=== PATIENT | female | born 1945 | race African-American/Black ===

== ENCOUNTER 2018-08-30 19:47 | Inpatient (IN) | payer MEDICARE, OTHER ==
[~2018-08-30] VITALS: Ht 157.5 cm; Wt 71.5 kg
[~2018-08-30 19:47] MED LIST: ALBU17AE16 IH; CARV3 PO; COMBIH IH; DULO30CA2 PO; FERR-89 PO; FLUT1DIS3 IH; FURO40 PO; LISI10TA PO
[2018-08-30] MEDS ORDERED: LISI-660 PO (20:03)
[2018-08-30 20:27] LABS: BASOPHILS % (AUTO) 0.3 % (0.0-2.0); EOSINOPHILS % (AUTO) 0.1 % (1.0-6.0); HEMATOCRIT 40.4 % (36-46); LYMPHOCYTES # (AUTO) 0.5 K/uL (1.0-4.8); LYMPHOCYTES % (AUTO) 10.7 % (22.0-44.0); MEAN CORPUSCULAR HEMOGLOBIN 30.1 pg (26.0-34.0); MEAN CORPUSCULAR HGB CONC 32.3 G/dL (31.0-37.0); MEAN CORPUSCULAR VOLUME 93 fL (80-100); MONOCYTES # (AUTO) 0.4 K/uL (0.1-1.0); MONOCYTES % (AUTO) 8.1 % (2.0-9.0); NEUTROPHILS % (AUTO) 80.8 % (40.0-70.0); PLATELET COUNT (AUTO) 141 K/uL (150-450); RED BLOOD CELL COUNT(AUTO) 4.33 MIL/uL (4.00-5.20); RED CELL DISTRIBUTION WIDTH 19.2 % (11.5-14.5)
[2018-08-30 20:37] LABS: CALCIUM, TOTAL 9.3 mg/dL (8.8-10.5); CREATININE 1.28 mg/dL (0.60-1.30); POTASSIUM 4.2 mmol/L (3.5-5.1)
[2018-08-30 20:40] LABS: INR 1.2 (0.9-1.1); PROTHROMBIN TIME 12.2 SEC (9.4-11.6)
[2018-08-30 21:01] LABS: ALBUMIN 3.4 g/dL (3.4-5.0); BILIRUBIN,TOTAL 1.2 mg/dL (0.1-1.0)
[2018-08-30] MEDS ORDERED: ACETAMINOPHEN 325 MG TABLET PO ONE (22:30)
[2018-08-30] MEDS ORDERED: FUROSEMIDE 40 MG/4 ML VIAL IVP ONE (22:45)
[2018-08-30] MEDS ORDERED: MethylPREDNISolone SOD SUCC 125 MG/2 ML VIAL IVP ONE (22:45)
[2018-08-30 23:22] LABS: APPEARANCE,URINE CLEAR (CLEAR); GLUCOSE, URINE (UA) NEGATIVE (NEGATIVE); KETONES,URINE TRACE mg/dL (NEGATIVE); LEUKOCYTE ESTERASE ,URINE NEGATIVE (NEGATIVE); NITRATE,URINE NEGATIVE (NEGATIVE); OCCULT BLOOD,URINE LARGE (NEGATIVE); PROTEIN,URINE SEE CONFIRM (NEGATIVE)
[2018-08-30 23:23] LABS: BILIRUBIN,URINE PRELIM. POSITIVE (NEGATIVE)
[2018-08-30 23:30] LABS: BACTERIA,URINE None Seen /HPF (None Seen); HYALINE CASTS, URINE 0-2 /LPF (None Seen); SQUAMOUS EPITHELIAL CELL,UR Moderate /LPF (None Seen)
[2018-08-30 23:31] LABS: SULFOSALICYLIC ACID,URINE 2+ (Negative)
[2018-08-30] MEDS ORDERED: ACETAMINOPHEN 325 MG TABLET PO PRN (23:45)
[2018-08-30] MEDS ORDERED: 0.9% SODIUM CHLORIDE 10 ML SYRINGE IVP PRN (23:45)
[2018-08-30] MEDS ORDERED: OxyCODONE HCL/ACETAMINOPHEN 5-325 MG TABLET PO PRN (23:45)
[2018-08-30] MEDS ORDERED: MAGNESIUM HYDROXIDE SUSPENSION 30 ML UDCUP PO PRN (23:45)
[2018-08-30] MEDS: DOCUSATE SODIUM 100 MG CAPSULE PO SCH (23:45)
[2018-08-31] VITALS (7 sets, daily range): BP systolic 120–138; BP diastolic 67–86
[2018-08-31] MEDS ORDERED: POTASSIUM CHLORIDE 20 MEQ ER TABLET PO PRN
[2018-08-31] MEDS ORDERED: 0.9% SODIUM CHLORIDE 5 ML NEB SOLUTION NEB ONE ×2 (00:09→01:13)
[2018-08-31] MEDS: FUROSEMIDE 40 MG/4 ML VIAL IVP SCH ×3 (00:50→19:56)
[2018-08-31] MEDS: MethylPREDNISolone SOD SUCC 125 MG/2 ML VIAL IVP SCH ×3 (00:50→19:56)
[2018-08-31] MEDS: IPRATROPIUM BROMIDE 0.5 MG/2.5 ML NEB SOLUTION NEB SCH ×3 (02:00→19:37)
[2018-08-31] MEDS: ALBUTEROL SULFATE 2.5 MG/0.5 ML NEB SOLUTION NEB SCH ×3 (02:00→19:37)
[2018-08-31] MEDS ORDERED: ALBUTEROL SULFATE 2.5 MG/0.5 ML NEB SOLUTION NEB PRN ×2 (03:00→14:15)
[2018-08-31 07:04] LABS: BASOPHILS % (AUTO) 0.1 % (0.0-2.0); EOSINOPHILS % (AUTO) 0 % (1.0-6.0); HEMATOCRIT 37.4 % (36-46); LYMPHOCYTES # (AUTO) 0.2 K/uL (1.0-4.8); LYMPHOCYTES % (AUTO) 7.2 % (22.0-44.0); MEAN CORPUSCULAR HEMOGLOBIN 29.7 pg (26.0-34.0); MEAN CORPUSCULAR HGB CONC 32.1 G/dL (31.0-37.0); MEAN CORPUSCULAR VOLUME 93 fL (80-100); NEUTROPHILS # (AUTO) 2.9 K/uL (1.8-7.7); PLATELET COUNT (AUTO) 134 K/uL (150-450); RED BLOOD CELL COUNT(AUTO) 4.05 MIL/uL (4.00-5.20); RED CELL DISTRIBUTION WIDTH 18.6 % (11.5-14.5)
[2018-08-31 07:07] LABS: NEUTROPHILS % (AUTO) 91.7 % (40.0-70.0)
[2018-08-31 07:12] LABS: CREATININE 1.3 mg/dL (0.60-1.30); POTASSIUM 3.6 mmol/L (3.5-5.1)
[2018-08-31] MEDS: DOCUSATE SODIUM 100 MG CAPSULE PO SCH ×2 (09:00→19:56)
[2018-08-31] MEDS: PANTOPRAZOLE SODIUM 40 MG DR TABLET PO SCH (09:14)
[2018-08-31] MEDS ORDERED: IPRATROPIUM BROMIDE 0.5 MG/2.5 ML NEB SOLUTION NEB PRN (14:15)
[2018-08-31] MEDS ORDERED: SODIUM CHLORIDE 0.9% 50 ML ONE (16:50)
[2018-08-31] MEDS: CefTRIAXone 1 GM/DEXTROSE 50 ML IV SCH (17:01)
[2018-08-31] MEDS: BENZONATATE 100 MG CAPSULE PO SCH ×2 (17:06→19:55)
[2018-08-31] MEDS: GuaiFENesin SR 600 MG ER TABLET PO SCH (19:55)
[2018-08-31] MEDS: OxyCODONE HCL/ACETAMINOPHEN 5-325 MG TABLET PO PRN (20:59)
[2018-09-01] MEDS: ALBUTEROL SULFATE 2.5 MG/0.5 ML NEB SOLUTION NEB SCH ×4 (02:25→19:59)
[2018-09-01] MEDS: IPRATROPIUM BROMIDE 0.5 MG/2.5 ML NEB SOLUTION NEB SCH ×4 (02:25→19:59)
[2018-09-01 04:43] VITALS: BP 131/80
[2018-09-01 07:43] VITALS: BP 133/73
[2018-09-01] MEDS: FUROSEMIDE 40 MG/4 ML VIAL IVP SCH (08:55)
[2018-09-01] MEDS: GuaiFENesin SR 600 MG ER TABLET PO SCH ×2 (08:56→20:32)
[2018-09-01] MEDS: MethylPREDNISolone SOD SUCC 125 MG/2 ML VIAL IVP SCH ×2 (08:56→20:31)
[2018-09-01] MEDS: PANTOPRAZOLE SODIUM 40 MG DR TABLET PO SCH (08:56)
[2018-09-01] MEDS: DOCUSATE SODIUM 100 MG CAPSULE PO SCH ×2 (08:56→20:32)
[2018-09-01] MEDS: BENZONATATE 100 MG CAPSULE PO SCH ×3 (08:57→20:31)
[2018-09-01 11:26] VITALS: BP 134/77
[2018-09-01] MEDS: POTASSIUM CHL 10 MEQ/WATER 50 ML IV PRN ×2 (13:37→18:36)
[2018-09-01 16:04] VITALS: BP 138/81
[2018-09-01] MEDS: CefTRIAXone 1 GM/DEXTROSE 50 ML IV SCH (16:08)
[2018-09-01] MEDS ORDERED: SODIUM CHLORIDE 0.9% 50 ML ONE (18:32)
[2018-09-01 19:24] VITALS: BP 119/62
[2018-09-01 23:41] VITALS: BP 136/70
[2018-09-02] MEDS: IPRATROPIUM BROMIDE 0.5 MG/2.5 ML NEB SOLUTION NEB SCH ×4 (01:59→20:04)
[2018-09-02] MEDS: ALBUTEROL SULFATE 2.5 MG/0.5 ML NEB SOLUTION NEB SCH ×4 (01:59→20:04)
[2018-09-02 04:26] VITALS: BP 132/74
[2018-09-02] MEDS: OxyCODONE HCL/ACETAMINOPHEN 5-325 MG TABLET PO PRN (04:46)
[2018-09-02 07:14] VITALS: BP 133/71
[2018-09-02] MEDS: BENZONATATE 100 MG CAPSULE PO SCH ×3 (09:55→20:57)
[2018-09-02] MEDS: GuaiFENesin SR 600 MG ER TABLET PO SCH ×2 (09:55→20:57)
[2018-09-02] MEDS: DOCUSATE SODIUM 100 MG CAPSULE PO SCH ×2 (09:55→20:56)
[2018-09-02] MEDS: PANTOPRAZOLE SODIUM 40 MG DR TABLET PO SCH (09:56)
[2018-09-02] MEDS: FUROSEMIDE 40 MG/4 ML VIAL IVP SCH (09:56)
[2018-09-02] MEDS: MethylPREDNISolone SOD SUCC 125 MG/2 ML VIAL IVP SCH ×2 (09:56→20:55)
[2018-09-02 10:40] LABS: BASOPHILS % (AUTO) 0.2 % (0.0-2.0); EOSINOPHILS % (AUTO) 0 % (1.0-6.0); HEMATOCRIT 37.6 % (36-46); HEMOGLOBIN 11.9 g/dL (12.0-16.0); LYMPHOCYTES # (AUTO) 0.3 K/uL (1.0-4.8); LYMPHOCYTES % (AUTO) 4.6 % (22.0-44.0); MEAN CORPUSCULAR HEMOGLOBIN 29.4 pg (26.0-34.0); MEAN CORPUSCULAR HGB CONC 31.7 G/dL (31.0-37.0); MEAN CORPUSCULAR VOLUME 93 fL (80-100); MONOCYTES # (AUTO) 0.5 K/uL (0.1-1.0); MONOCYTES % (AUTO) 7.8 % (2.0-9.0); NEUTROPHILS # (AUTO) 5.4 K/uL (1.8-7.7); PLATELET COUNT (AUTO) 144 K/uL (150-450); RED BLOOD CELL COUNT(AUTO) 4.06 MIL/uL (4.00-5.20); RED CELL DISTRIBUTION WIDTH 18.4 % (11.5-14.5)
[2018-09-02 10:42] LABS: NEUTROPHILS % (AUTO) 87.4 % (40.0-70.0)
[2018-09-02 10:56] LABS: BILIRUBIN,TOTAL 0.3 mg/dL (0.1-1.0); CALCIUM, TOTAL 8.6 mg/dL (8.8-10.5); CREATININE 1.64 mg/dL (0.60-1.30); POTASSIUM 3.9 mmol/L (3.5-5.1); TOTAL PROTEIN, SERUM 7.2 g/dL (6.4-8.2)
[2018-09-02 11:00] VITALS: BP 128/66
[2018-09-02] MEDS: CARVEDILOL 3.125 MG TABLET PO SCH ×2 (12:06→20:56)
[2018-09-02] MEDS: LOSARTAN POTASSIUM 25 MG TABLET PO SCH ×2 (12:07→20:56)
[2018-09-02 15:14] VITALS: BP 133/70
[2018-09-02] MEDS: CefTRIAXone 1 GM/DEXTROSE 50 ML IV SCH (16:31)
[2018-09-02 19:23] VITALS: BP 124/68
[2018-09-02 23:53] VITALS: BP 125/72
[2018-09-03] MEDS: IPRATROPIUM BROMIDE 0.5 MG/2.5 ML NEB SOLUTION NEB SCH ×4 (01:25→21:17)
[2018-09-03] MEDS: ALBUTEROL SULFATE 2.5 MG/0.5 ML NEB SOLUTION NEB SCH ×4 (01:25→21:17)
[2018-09-03 04:18] VITALS: BP 137/79
[2018-09-03 06:58] LABS: BASOPHILS % (AUTO) 0.1 % (0.0-2.0); EOSINOPHILS % (AUTO) 0 % (1.0-6.0); HEMATOCRIT 38.6 % (36-46); HEMOGLOBIN 12.3 g/dL (12.0-16.0); LYMPHOCYTES # (AUTO) 0.2 K/uL (1.0-4.8); MEAN CORPUSCULAR HEMOGLOBIN 29.3 pg (26.0-34.0); MEAN CORPUSCULAR HGB CONC 31.9 G/dL (31.0-37.0); MEAN CORPUSCULAR VOLUME 92 fL (80-100); MONOCYTES # (AUTO) 0.2 K/uL (0.1-1.0); MONOCYTES % (AUTO) 3.6 % (2.0-9.0); NEUTROPHILS # (AUTO) 4.7 K/uL (1.8-7.7); PLATELET COUNT (AUTO) 129 K/uL (150-450); RED BLOOD CELL COUNT(AUTO) 4.19 MIL/uL (4.00-5.20); RED CELL DISTRIBUTION WIDTH 18.8 % (11.5-14.5)
[2018-09-03 07:05] LABS: NEUTROPHILS % (AUTO) 93.3 % (40.0-70.0)
[2018-09-03 07:18] LABS: ALBUMIN 2.9 g/dL (3.4-5.0); BILIRUBIN,TOTAL 0.4 mg/dL (0.1-1.0); CALCIUM, TOTAL 8.4 mg/dL (8.8-10.5); CREATININE 1.43 mg/dL (0.60-1.30); POTASSIUM 4.2 mmol/L (3.5-5.1); TOTAL PROTEIN, SERUM 6.8 g/dL (6.4-8.2)
[2018-09-03 07:47] VITALS: BP 123/70
[2018-09-03] MEDS: CARVEDILOL 3.125 MG TABLET PO SCH ×2 (09:00→20:58)
[2018-09-03] MEDS: DOCUSATE SODIUM 100 MG CAPSULE PO SCH ×2 (09:07→20:22)
[2018-09-03] MEDS: BENZONATATE 100 MG CAPSULE PO SCH ×3 (09:07→20:23)
[2018-09-03] MEDS: MethylPREDNISolone SOD SUCC 125 MG/2 ML VIAL IVP SCH ×2 (09:07→20:22)
[2018-09-03] MEDS: FUROSEMIDE 40 MG/4 ML VIAL IVP SCH (09:07)
[2018-09-03] MEDS: PANTOPRAZOLE SODIUM 40 MG DR TABLET PO SCH (09:07)
[2018-09-03] MEDS: LOSARTAN POTASSIUM 25 MG TABLET PO SCH ×2 (09:08→20:26)
[2018-09-03] MEDS: GuaiFENesin SR 600 MG ER TABLET PO SCH ×2 (09:08→20:23)
[2018-09-03 11:00] VITALS: BP 116/64
[2018-09-03 15:48] VITALS: BP 121/71
[2018-09-03] MEDS: CefTRIAXone 1 GM/DEXTROSE 50 ML IV SCH (16:40)
[2018-09-03 20:17] VITALS: BP 133/67
[2018-09-04 00:25] VITALS: BP 132/69
[2018-09-04] MEDS: IPRATROPIUM BROMIDE 0.5 MG/2.5 ML NEB SOLUTION NEB SCH ×4 (02:16→20:36)
[2018-09-04] MEDS: ALBUTEROL SULFATE 2.5 MG/0.5 ML NEB SOLUTION NEB SCH ×4 (02:16→20:36)
[2018-09-04 05:09] VITALS: BP 128/65
[2018-09-04 06:05] LABS: EOSINOPHILS % (AUTO) 0 % (1.0-6.0); HEMATOCRIT 39.9 % (36-46); HEMOGLOBIN 12.6 g/dL (12.0-16.0); LYMPHOCYTES # (AUTO) 0.2 K/uL (1.0-4.8); MEAN CORPUSCULAR HEMOGLOBIN 29.4 pg (26.0-34.0); MEAN CORPUSCULAR HGB CONC 31.7 G/dL (31.0-37.0); MEAN CORPUSCULAR VOLUME 93 fL (80-100); MONOCYTES # (AUTO) 0.2 K/uL (0.1-1.0); MONOCYTES % (AUTO) 4.9 % (2.0-9.0); NEUTROPHILS # (AUTO) 4.2 K/uL (1.8-7.7); PLATELET COUNT (AUTO) 125 K/uL (150-450); RED CELL DISTRIBUTION WIDTH 18.8 % (11.5-14.5)
[2018-09-04 06:32] LABS: ALBUMIN 2.8 g/dL (3.4-5.0); BILIRUBIN,TOTAL 0.4 mg/dL (0.1-1.0); CALCIUM, TOTAL 8.5 mg/dL (8.8-10.5); CREATININE 1.43 mg/dL (0.60-1.30); POTASSIUM 4.1 mmol/L (3.5-5.1); TOTAL PROTEIN, SERUM 6.8 g/dL (6.4-8.2)
[2018-09-04 06:34] LABS: NEUTROPHILS % (AUTO) 91.1 % (40.0-70.0)
[2018-09-04 07:20] VITALS: BP 132/75
[2018-09-04] MEDS: MethylPREDNISolone SOD SUCC 125 MG/2 ML VIAL IVP SCH ×2 (08:19→21:01)
[2018-09-04] MEDS: FUROSEMIDE 40 MG/4 ML VIAL IVP SCH (08:20)
[2018-09-04] MEDS: PANTOPRAZOLE SODIUM 40 MG DR TABLET PO SCH (08:20)
[2018-09-04] MEDS: GuaiFENesin SR 600 MG ER TABLET PO SCH ×2 (08:20→21:01)
[2018-09-04] MEDS: LOSARTAN POTASSIUM 25 MG TABLET PO SCH ×2 (08:20→21:02)
[2018-09-04] MEDS: BENZONATATE 100 MG CAPSULE PO SCH ×2 (08:21→16:00)
[2018-09-04] MEDS: DOCUSATE SODIUM 100 MG CAPSULE PO SCH ×2 (08:21→21:01)
[2018-09-04] MEDS: CARVEDILOL 3.125 MG TABLET PO SCH ×2 (09:00→21:02)
[2018-09-04] MEDS ORDERED: FUROSEMIDE 40 MG/4 ML VIAL IVP ONE (09:00)
[2018-09-04 11:26] VITALS: BP 128/67
[2018-09-04] MEDS: CefTRIAXone 1 GM/DEXTROSE 50 ML IV SCH (15:31)
[2018-09-04 16:00] VITALS: BP 130/71
[2018-09-04] MEDS: ONDANSETRON HCL 4 MG/2 ML VIAL IVP PRN (16:55)
[2018-09-04 19:35] VITALS: BP 128/62
[2018-09-05] VITALS (7 sets, daily range): BP systolic 114–139; BP diastolic 56–64
[2018-09-05] MEDS: BENZONATATE 100 MG CAPSULE PO SCH ×4 (00:37→20:26)
[2018-09-05] MEDS: ALBUTEROL SULFATE 2.5 MG/0.5 ML NEB SOLUTION NEB SCH ×4 (01:32→20:32)
[2018-09-05] MEDS: IPRATROPIUM BROMIDE 0.5 MG/2.5 ML NEB SOLUTION NEB SCH ×4 (01:32→20:33)
[2018-09-05 07:07] LABS: BASOPHILS % (AUTO) 0.1 % (0.0-2.0); EOSINOPHILS % (AUTO) 0 % (1.0-6.0); HEMATOCRIT 41.7 % (36-46); HEMOGLOBIN 13.2 g/dL (12.0-16.0); LYMPHOCYTES # (AUTO) 0.2 K/uL (1.0-4.8); LYMPHOCYTES % (AUTO) 4.7 % (22.0-44.0); MEAN CORPUSCULAR HEMOGLOBIN 29.3 pg (26.0-34.0); MEAN CORPUSCULAR HGB CONC 31.7 G/dL (31.0-37.0); MEAN CORPUSCULAR VOLUME 92 fL (80-100); MONOCYTES # (AUTO) 0.2 K/uL (0.1-1.0); NEUTROPHILS # (AUTO) 3.7 K/uL (1.8-7.7); PLATELET COUNT (AUTO) 126 K/uL (150-450); RED BLOOD CELL COUNT(AUTO) 4.51 MIL/uL (4.00-5.20); RED CELL DISTRIBUTION WIDTH 18.2 % (11.5-14.5)
[2018-09-05 07:12] LABS: INR 1.1 (0.9-1.1); PROTHROMBIN TIME 11.4 SEC (9.4-11.6)
[2018-09-05 07:15] LABS: ALBUMIN 2.7 g/dL (3.4-5.0); BILIRUBIN,TOTAL 0.4 mg/dL (0.1-1.0); CALCIUM, TOTAL 8.2 mg/dL (8.8-10.5); CREATININE 1.49 mg/dL (0.60-1.30); MAGNESIUM 1.9 mg/dL (1.80-2.40); NEUTROPHILS % (AUTO) 91.2 % (40.0-70.0); POTASSIUM 4.2 mmol/L (3.5-5.1); TOTAL PROTEIN, SERUM 6.3 g/dL (6.4-8.2)
[2018-09-05] MEDS: LOSARTAN POTASSIUM 25 MG TABLET PO SCH ×2 (09:00→20:28)
[2018-09-05] MEDS: CARVEDILOL 3.125 MG TABLET PO SCH ×2 (09:00→20:27)
[2018-09-05] MEDS: DOCUSATE SODIUM 100 MG CAPSULE PO SCH ×2 (09:00→20:26)
[2018-09-05] MEDS ORDERED: SODIUM BICARBONATE 50 MEQ/50 ML VIAL ONE (10:10)
[2018-09-05] MEDS ORDERED: LIDOCAINE/PF 1% 30 ML VIAL ONE (10:10)
[2018-09-05] MEDS ORDERED: BUPIVACAINE LIPOSOME/PF 1.3%-13.3MG/ML SUSPENSION 10 ML VIAL INJ ONE (11:15)
[2018-09-05] MEDS ORDERED: LIDOCAINE 1% 30 ML/SOD BICARB 8.4% 4 ML SQ ONE (11:15)
[2018-09-05] MEDS: GuaiFENesin SR 600 MG ER TABLET PO SCH ×2 (12:51→20:26)
[2018-09-05] MEDS: MethylPREDNISolone SOD SUCC 125 MG/2 ML VIAL IVP SCH (12:51)
[2018-09-05] MEDS: PANTOPRAZOLE SODIUM 40 MG DR TABLET PO SCH (12:51)
[2018-09-05] MEDS: FUROSEMIDE 40 MG/4 ML VIAL IVP SCH (12:52)
[2018-09-05] MEDS: MethylPREDNISolone SOD SUCC 40 MG/ML VIAL IVP SCH ×3 (16:10→23:20)
[2018-09-05] MEDS: CefTRIAXone 1 GM/DEXTROSE 50 ML IV SCH (16:10)
[2018-09-05 16:58] LABS: ABG A-A DIFF O2 46.6 mmHg (10-20.0); ABG BASE EXCESS 7.2 mmol/L (-2.0-3.0); ABG CARBOXYHEMOGLOBIN 1.1 % (0.0-1.5); ABG HCO3 29.2 mmol/L (22.0-26.0); ABG METHEMOGLOBIN 0.3 % (0.0-1.5); ABG OXYGEN CONTENT 15.2 mL/dL (15.0-23.0); ABG PCO2 51 mmHg (35-45); ABG PH 7.413 (7.35-7.450); ABG TOTAL HEMOGLOBIN 14.5 G/dL (12.0-18.0); SOURCE, BLOOD GAS ARTERIAL; TEMPERATURE, FAHRENHEIT, BG 98.6 FAHREN (96.0-98.6)
[2018-09-05 17:05] LABS: ABG OXYGEN SATURATION 76.1 % (95.0-98.0); O2 DEVICE,BLOOD GAS ROOM AIR (ROOM AIR); PO2, ARTERIAL BG 42.2 mmHg (75.0-83.0); SITE, BLOOD GAS RT RADIAL
[2018-09-05] MEDS: BUDESONIDE 0.5 MG/2 ML NEB SOLUTION NEB SCH (20:32)
[2018-09-05] MEDS: OxyCODONE HCL/ACETAMINOPHEN 5-325 MG TABLET PO PRN (23:33)
[2018-09-06] MEDS: IPRATROPIUM BROMIDE 0.5 MG/2.5 ML NEB SOLUTION NEB SCH ×4 (02:23→19:53)
[2018-09-06] MEDS: ALBUTEROL SULFATE 2.5 MG/0.5 ML NEB SOLUTION NEB SCH ×4 (02:24→19:53)
[2018-09-06 04:25] VITALS: BP 122/60
[2018-09-06] MEDS: MethylPREDNISolone SOD SUCC 40 MG/ML VIAL IVP SCH ×3 (04:55→18:50)
[2018-09-06 07:52] VITALS: BP 137/65
[2018-09-06] MEDS: BUDESONIDE 0.5 MG/2 ML NEB SOLUTION NEB SCH ×2 (08:42→19:54)
[2018-09-06] MEDS: CARVEDILOL 3.125 MG TABLET PO SCH ×2 (09:00→21:15)
[2018-09-06] MEDS: BENZONATATE 100 MG CAPSULE PO SCH ×3 (09:41→21:15)
[2018-09-06] MEDS: DOCUSATE SODIUM 100 MG CAPSULE PO SCH ×2 (09:42→21:16)
[2018-09-06] MEDS: LOSARTAN POTASSIUM 25 MG TABLET PO SCH ×2 (09:42→21:15)
[2018-09-06] MEDS: GuaiFENesin SR 600 MG ER TABLET PO SCH ×2 (09:42→21:15)
[2018-09-06] MEDS: PANTOPRAZOLE SODIUM 40 MG DR TABLET PO SCH (09:42)
[2018-09-06 11:38] VITALS: BP 130/64
[2018-09-06] MEDS: ONDANSETRON HCL 4 MG/2 ML VIAL IVP PRN (14:38)
[2018-09-06] MEDS: OxyCODONE HCL/ACETAMINOPHEN 5-325 MG TABLET PO PRN (14:38)
[2018-09-06 14:52] VITALS: BP 142/63
[2018-09-06] MEDS: CefTRIAXone 1 GM/DEXTROSE 50 ML IV SCH (16:26)
[2018-09-06 20:21] VITALS: BP 133/61
[2018-09-06] MEDS: FUROSEMIDE 40 MG/4 ML VIAL IVP SCH (21:20)
[2018-09-07] VITALS (17 sets, daily range): BP systolic 98–142; BP diastolic 47–73
[2018-09-07] MEDS: MethylPREDNISolone SOD SUCC 40 MG/ML VIAL IVP SCH ×5 (00:03→23:53)
[2018-09-07] MEDS: IPRATROPIUM BROMIDE 0.5 MG/2.5 ML NEB SOLUTION NEB SCH ×4 (02:31→19:47)
[2018-09-07] MEDS: ALBUTEROL SULFATE 2.5 MG/0.5 ML NEB SOLUTION NEB SCH ×4 (02:31→19:47)
[2018-09-07 06:14] LABS: BASOPHILS % (AUTO) 0.1 % (0.0-2.0); EOSINOPHILS % (AUTO) 0 % (1.0-6.0); HEMATOCRIT 43.9 % (36-46); HEMOGLOBIN 13.9 g/dL (12.0-16.0); LYMPHOCYTES # (AUTO) 0.1 K/uL (1.0-4.8); LYMPHOCYTES % (AUTO) 2.7 % (22.0-44.0); MEAN CORPUSCULAR HEMOGLOBIN 29.1 pg (26.0-34.0); MEAN CORPUSCULAR HGB CONC 31.7 G/dL (31.0-37.0); MEAN CORPUSCULAR VOLUME 92 fL (80-100); MONOCYTES # (AUTO) 0.1 K/uL (0.1-1.0); NEUTROPHILS # (AUTO) 4.3 K/uL (1.8-7.7); PLATELET COUNT (AUTO) 142 K/uL (150-450); RED BLOOD CELL COUNT(AUTO) 4.78 MIL/uL (4.00-5.20); RED CELL DISTRIBUTION WIDTH 18.1 % (11.5-14.5)
[2018-09-07 06:16] LABS: INR 1.2 (0.9-1.1)
[2018-09-07 06:46] LABS: NEUTROPHILS % (AUTO) 94.2 % (40.0-70.0)
[2018-09-07 07:03] LABS: CREATININE 1.25 mg/dL (0.60-1.30); MAGNESIUM 1.9 mg/dL (1.80-2.40); POTASSIUM 3.7 mmol/L (3.5-5.1)
[2018-09-07] MEDS: CARVEDILOL 3.125 MG TABLET PO SCH ×2 (09:00→20:35)
[2018-09-07] MEDS: FUROSEMIDE 40 MG/4 ML VIAL IVP SCH ×2 (09:02→20:16)
[2018-09-07] MEDS: DOCUSATE SODIUM 100 MG CAPSULE PO SCH ×2 (09:03→20:17)
[2018-09-07] MEDS: LOSARTAN POTASSIUM 25 MG TABLET PO SCH ×2 (09:04→20:35)
[2018-09-07] MEDS: BENZONATATE 100 MG CAPSULE PO SCH ×3 (09:04→20:17)
[2018-09-07] MEDS: GuaiFENesin SR 600 MG ER TABLET PO SCH ×2 (09:04→20:17)
[2018-09-07] MEDS: PANTOPRAZOLE SODIUM 40 MG DR TABLET PO SCH (09:04)
[2018-09-07] MEDS: BUDESONIDE 0.5 MG/2 ML NEB SOLUTION NEB SCH ×2 (09:04→19:47)
[2018-09-07] MEDS ORDERED: LIDOCAINE/PF 1% 30 ML VIAL ONE ×2 (13:34→14:13)
[2018-09-07] MEDS ORDERED: SODIUM CHLORIDE 0.9% 1,000 ML IV ONE (13:46)
[2018-09-07] MEDS ORDERED: BUPIVACAINE LIPOSOME/PF 1.3%-13.3MG/ML SUSPENSION 10 ML VIAL INJ ONE ×2 (14:15→15:00)
[2018-09-07] MEDS ORDERED: LIDOCAINE 1% 30 ML/SOD BICARB 8.4% 4 ML SQ ONE (14:15)
[2018-09-07] MEDS ORDERED: SODIUM CHLORIDE 0.9% 100 ML ONE (20:12)
[2018-09-07] MEDS: CeFAZolin 1 GM/DEXTROSE 50 ML IV SCH (20:16)
[2018-09-08] MEDS: ALBUTEROL SULFATE 2.5 MG/0.5 ML NEB SOLUTION NEB SCH ×4 (01:01→20:05)
[2018-09-08] MEDS: IPRATROPIUM BROMIDE 0.5 MG/2.5 ML NEB SOLUTION NEB SCH ×4 (01:01→20:04)
[2018-09-08] MEDS: CeFAZolin 1 GM/DEXTROSE 50 ML IV SCH ×3 (02:17→17:46)
[2018-09-08 04:19] VITALS: BP 101/47
[2018-09-08] MEDS ORDERED: PROPOFOL 1% 20 ML VIAL IVP ONE (05:40)
[2018-09-08] MEDS ORDERED: 0.9% SODIUM CHLORIDE 10 ML VIAL IVP ONE (05:40)
[2018-09-08] MEDS ORDERED: FentaNYL CITRATE-PF 100 MCG/2 ML VIAL IVP ONE (05:40)
[2018-09-08] MEDS ORDERED: MIDAZOLAM HCL 2 MG/2 ML VIAL IVP ONE (05:40)
[2018-09-08] MEDS: MethylPREDNISolone SOD SUCC 40 MG/ML VIAL IVP SCH (06:00)
[2018-09-08] MEDS ORDERED: PRED10 PO ×2 (07:04→07:11)
[2018-09-08 07:10] VITALS: BP 98/52
[2018-09-08] MEDS: BUDESONIDE 0.5 MG/2 ML NEB SOLUTION NEB SCH ×2 (08:38→20:05)
[2018-09-08] MEDS ORDERED: PredniSONE 20 MG TABLET PO SCH (09:00)
[2018-09-08] MEDS: LOSARTAN POTASSIUM 25 MG TABLET PO SCH ×2 (09:00→21:00)
[2018-09-08] MEDS: CARVEDILOL 3.125 MG TABLET PO SCH ×2 (09:00→21:25)
[2018-09-08] MEDS: FUROSEMIDE 40 MG/4 ML VIAL IVP SCH ×2 (09:00→21:25)
[2018-09-08] MEDS: DOCUSATE SODIUM 100 MG CAPSULE PO SCH ×2 (09:01→21:25)
[2018-09-08] MEDS: PANTOPRAZOLE SODIUM 40 MG DR TABLET PO SCH (09:03)
[2018-09-08] MEDS: PredniSONE 20 MG TABLET PO SCH (09:03)
[2018-09-08] MEDS: BENZONATATE 100 MG CAPSULE PO SCH ×3 (09:03→21:25)
[2018-09-08] MEDS: GuaiFENesin SR 600 MG ER TABLET PO SCH ×2 (09:03→21:25)
[2018-09-08 11:13] VITALS: BP 111/56
[2018-09-08 15:36] VITALS: BP 110/55
[2018-09-08 19:57] VITALS: BP 104/55
[2018-09-09 00:29] VITALS: BP 107/50
[2018-09-09] MEDS: CeFAZolin 1 GM/DEXTROSE 50 ML IV SCH ×3 (01:55→16:34)
[2018-09-09] MEDS: IPRATROPIUM BROMIDE 0.5 MG/2.5 ML NEB SOLUTION NEB SCH ×3 (02:55→14:52)
[2018-09-09] MEDS: ALBUTEROL SULFATE 2.5 MG/0.5 ML NEB SOLUTION NEB SCH ×3 (02:56→14:51)
[2018-09-09 05:06] VITALS: BP 98/43
[2018-09-09 07:55] VITALS: BP 102/52
[2018-09-09] MEDS: FUROSEMIDE 40 MG/4 ML VIAL IVP SCH (08:52)
[2018-09-09] MEDS: DOCUSATE SODIUM 100 MG CAPSULE PO SCH (08:52)
[2018-09-09] MEDS: BUDESONIDE 0.5 MG/2 ML NEB SOLUTION NEB SCH (08:53)
[2018-09-09] MEDS: BENZONATATE 100 MG CAPSULE PO SCH ×2 (08:53→16:27)
[2018-09-09] MEDS: PANTOPRAZOLE SODIUM 40 MG DR TABLET PO SCH (08:53)
[2018-09-09] MEDS: PredniSONE 20 MG TABLET PO SCH (08:53)
[2018-09-09] MEDS: GuaiFENesin SR 600 MG ER TABLET PO SCH (08:54)
[2018-09-09] MEDS: CARVEDILOL 3.125 MG TABLET PO SCH (09:00)
[2018-09-09] MEDS: LOSARTAN POTASSIUM 25 MG TABLET PO SCH (09:00)
[2018-09-09 11:40] VITALS: BP 98/56
[2018-09-09 16:09] VITALS: BP 94/57
[2018-09-09] MEDS ORDERED: BENZ-51 PO (16:14)
[2018-09-09] MEDS ORDERED: BUDE0.5A3 NEB (16:14)
[2018-09-09] MEDS ORDERED: CEPH500 PO (16:16)
[2018-09-09] MEDS ORDERED: GUAIF600 PO (16:17)
[2018-09-09] MEDS ORDERED: LOSA25TA41 PO (16:18)
== END 2018-09-09 18:40 | DRG 245 ==
LOC: EMS 19:48 → 5N 22:51
PROVIDERS: ADMIT Internal Medicine; ATTEND Internal Medicine
PROC: 0JPT0PZ Removal of Cardiac Rhythm Related Device from Trunk Subcutaneous Tissue and Fascia, Open Approach (ICD-10-PCS; principal; 2018-09-07)
PROC: 0JH609Z Insertion of Cardiac Resynchronization Defibrillator Pulse Generator into Chest Subcutaneous Tissue and Fascia, Open Approach (ICD-10-PCS; 2018-09-07)
DX: I11.0 Hypertensive heart disease with heart failure (principal); J96.21 Acute and chronic respiratory failure with hypoxia; J44.1 Chronic obstructive pulmonary disease with (acute) exacerbation; J93.9 Pneumothorax, unspecified; I50.23 Acute on chronic systolic (congestive) heart failure; E03.9 Hypothyroidism, unspecified; E78.5 Hyperlipidemia, unspecified; F17.210 Nicotine dependence, cigarettes, uncomplicated; I25.10 Atherosclerotic heart disease of native coronary artery without angina pectoris; I25.5 Ischemic cardiomyopathy; K21.9 Gastro-esophageal reflux disease without esophagitis; Z53.9 Procedure and treatment not carried out, unspecified reason; Z79.899 Other long term (current) drug therapy; Z95.1 Presence of aortocoronary bypass graft; Z95.810 Presence of automatic (implantable) cardiac defibrillator; Z45.02 Encounter for adjustment and management of automatic implantable cardiac defibrillator; Z99.81 Dependence on supplemental oxygen
CPT/HCPCS: 33240; 36600; 71250; 82805; 83735; 84132; 84145; 88300; 93005; 93306; 94640; 96374; 96375; 97163; 97166; 97530; 97535; G0378; J0690; J0696; J1940; J2250; J2405; J2704; J2920; J2930; J3010; J3480; J3490; J7030; J7050

== ENCOUNTER → 2018-10-07 | Outpatient (CLI) | payer MEDICARE, OTHER ==
[~2018-10-07] VITALS: Ht 167.6 cm; Wt 64.0 kg
[~2018-10-07] MED LIST changes: +BENZ-51 PO; +BUDE0.5A3 NEB; +CEPH500 PO; -COMBIH IH; -FLUT1DIS3 IH; +GUAIF600 PO; +LISI-660 PO; -LISI10TA PO; +LOSA25TA41 PO; +PRED10 PO
[2018-10-07 13:08] VITALS: BP 98/58
== END | disposition home or self-care (01) ==
LOC: SRCNTR 11:14
PROVIDERS: ATTEND Internal Medicine Clinical Cardiac Electrophysiology
DX: J44.9 Chronic obstructive pulmonary disease, unspecified (principal); I11.0 Hypertensive heart disease with heart failure; I50.9 Heart failure, unspecified; I25.10 Atherosclerotic heart disease of native coronary artery without angina pectoris; E78.5 Hyperlipidemia, unspecified; Z95.810 Presence of automatic (implantable) cardiac defibrillator
CPT/HCPCS: G0463

== ENCOUNTER → 2018-10-25 | Outpatient (CLI) | payer MEDICARE, OTHER ==
[~2018-10-25] VITALS: Ht 167.6 cm; Wt 64.0 kg
[2018-10-25 10:48] VITALS: BP 93/54
== END | disposition home or self-care (01) ==
LOC: SRCNTR 10:27
PROVIDERS: ATTEND Internal Medicine Clinical Cardiac Electrophysiology
DX: Z45.018 Encounter for adjustment and management of other part of cardiac pacemaker (principal)
CPT/HCPCS: G0463

== ENCOUNTER 2020-12-09 22:23 | Emergency (ER) | payer MEDICARE, OTHER ==
[~2020-12-09] VITALS: Ht 175.3 cm; Wt 79.6 kg
[~2020-12-09 22:23] MED LIST changes: -BENZ-51 PO; +BENZ-70 PO; -CEPH500 PO; -DULO30CA2 PO; -FERR-89 PO; -LISI-660 PO; +LOSA25TA21 PO; -LOSA25TA41 PO; -PRED10 PO
[2020-12-10] MEDS ORDERED: ACETAMINOPHEN 500 MG TABLET PO ONE
[2020-12-10 00:45] VITALS: BP 111/61
== END 2020-12-10 00:47 | disposition home or self-care (01) ==
LOC: EMS 22:23
DX: S00.83XA Contusion of other part of head, initial encounter (principal); M25.531 Pain in right wrist; J45.909 Unspecified asthma, uncomplicated; I25.10 Atherosclerotic heart disease of native coronary artery without angina pectoris; I11.0 Hypertensive heart disease with heart failure; I50.9 Heart failure, unspecified; K21.9 Gastro-esophageal reflux disease without esophagitis; Z79.899 Other long term (current) drug therapy; W18.09XA Striking against other object with subsequent fall, initial encounter; Y93.89 Activity, other specified; Y92.89 Other specified places as the place of occurrence of the external cause; Y99.8 Other external cause status
CPT/HCPCS: 70450; 70486; 72125; 93005; 99285